=== PATIENT | female | born 1935 | race Caucasian/White ===

== ENCOUNTER 2017-05-12 14:02 | Emergency (ER) | payer MEDICARE, OTHER ==
[~2017-05-12 14:02] MED LIST: ASCO100T4 PO; ASPI-630 PO; ATEN25TA PO; DIPH25CA58 PO; LEVO25TA4 PO; LISI2.5T PO; POTA10CA PO; TRIA1CAP3 PO
[2017-05-12 14:05] VITALS: BP 131/62
--- NOTE | 2017-05-12 14:17 | RAD ---
EXAM: CT head without contrast. HISTORY: Cerebrovascular accident, found down. TECHNIQUE: Computed tomography of the head was performed without intravenous contrast. COMPARISON: 04/07/2004. FINDINGS: There is no intraparenchymal hemorrhage within the right basal ganglia. Additional lobules of hemorrhage extend into the right aspect of the corpus callosum and the right frontal lua matter. Altogether, the process measures approximately 5.0 x 4.2 cm. There is moderate surrounding vasogenic edema. Leftward midline shift measures 6 mm. The right lateral ventricle is effaced. Lua-white differentiation on the left is preserved. Left lateral ventricle is not entrapped. The visualized paranasal sinuses appear clear. There are changes of right cataract surgery. The temporal bones are unremarkable. The calvarium reveals no suspicious lesions. IMPRESSION: 1. 5 x 4 cm right basal ganglia and frontal intraparenchymal hematoma with moderate surrounding vasogenic edema. 6 mm leftward midline shift and effacement of the right lateral ventricle. 2. MRI with/without contrast could exclude an underlying lesion. These findings were called to Dr. Robin by Josef Dailey on 05/12/2017 at 1405. *One or more of the following individualized dose reduction techniques were utilized for this examination: 1. Automated exposure control. 2. Adjustment of the mA and/or kV according to patient size. 3. Use of iterative reconstruction technique.
--- NOTE | 2017-05-12 14:36 | PHYS DOC ---
General Chief Complaint: ALTERED MENTAL STATUS Stated Complaint: AMS Time Seen by MD: 14:13 Source: patient, EMS, old records Exam Limitations: clinical condition Problems: History of Present Illness Initial Comments Patient is an 82-year-old female brought to the ED by EMS with stroke symptoms. EMS reports that the patient was last known well 2 days ago. Earlier today family stop by to take her on errands and she did not come to the door. They called other family from home the patient rents and were able to get into the house and found the patient having left-sided weakness. EMS reports that on arrival they found the patient sitting in a chair with urine soaked through her clothing and through the chair cushions. Today and it appeared that the patient had been there for at least hours. The patient was unresponsive had left-sided facial droop and left-sided weakness and protecting her airway. Her vital signs were stable and she was brought to the emergency department for further evaluation. On arrival I initiated code stroke protocol and the patient was straight to CT. I was called to the radiology department to look at her imaging which revealed a large right-sided bleed. Radiologist called to further define interparenchymal hemorrhage with midline shift, he stated it appeared to be subacute. I asked that jd edwards consultant hospitalist at [facility] be paged. [id number]: I discussed the patient with Dr. Forte jd edwards consultant hospitalist at [facility] who accepts the patient to the ICU. Timing/Duration: unsure Severity: severe Modifying Factors: improves with other Associated Symptoms: weakness Allergies: Coded Allergies: metoclopramide (Verified Allergy, Unknown, Swelling, 03/20/16) tongue and mouth Past Medical History Medical History: other (hypertension, hypothyroidism, hypokalemia, "emotional disorder") Surgical History: noncontributory Social History Smoker: quit greater than 1 year Alcohol: other (unsure) Drugs: none Review of Systems All Other Systems: Reviewed and Negative (per history of present illness accurate review of systems unobtainable.) Physical Exam General Appearance: no apparent distress (lethargic) Ear, Nose, Throat: hearing grossly normal, other (L droop, swallows secretions , opens eyes to verbal stimuli tries to talk speech slurred/garbled) Neck: non-tender, supple Respiratory: other (coarse BS b/l good air movement no resp distress) Cardiovascular: normal peripheral pulses, regular rate, rhythm, other (2+ pitting LE edema) Gastrointestinal: normal bowel sounds, non tender, soft Back: no CVA tenderness, no vertebral tenderness Extremities: non-tender, no calf tenderness, pelvis stable Neurologic/Psychiatric: disoriented x 3, other (L droop, swallows secretions, L side weakness withdraws to pain, some spontaneous motion) Skin: pallor (poor turgor) Orders, Labs, Meds I discussed the patient with family, 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 EKG: Sinus bradycardia 59 bpm with extensive baseline wander artifact, apparent strain pattern anterior leads and T-wave inversion inferiorly. No STEMI changes interpreted by Dr. Ramirez. PATIENT: MADYSON BEARD ACCOUNT: [id number] : 1935 LOCATION: ER AGE: 82 SEX: F EXAM STATUS: PRE ER ORD. PHYSICIAN: WENDY RAMIREZ DO REASON: AMS PROCEDURE: CT CODE STROKE HEAD WO EXAM: CT head without contrast. HISTORY: Cerebrovascular accident, found down. TECHNIQUE: Computed tomography of the head was performed without intravenous contrast. COMPARISON: 04/07/2004. FINDINGS: There is no intraparenchymal hemorrhage within the right basal ganglia. Additional lobules of hemorrhage extend into the right aspect of the corpus callosum and the right frontal lua matter. Altogether, the process measures approximately 5.0 x 4.2 cm. There is moderate surrounding vasogenic edema. Leftward midline shift measures 6 mm. The right lateral ventricle is effaced. Lua-white differentiation on the left is preserved. Left lateral ventricle is not entrapped. The visualized paranasal sinuses appear clear. There are changes of right cataract surgery. The temporal bones are unremarkable. The calvarium reveals no suspicious lesions. IMPRESSION: 1. 5 x 4 cm right basal ganglia and frontal intraparenchymal hematoma with moderate surrounding vasogenic edema. 6 mm leftward midline shift and effacement of the right lateral ventricle. 2. MRI with/without contrast could exclude an underlying lesion. These findings were called to Dr. Ramirez by Josef Dailey on 05/12/2017 at 1405. *One or more of the following individualized dose reduction techniques were utilized for this examination: 1. Automated exposure control. 2. Adjustment of the mA and/or kV according to patient size. 3. Use of iterative reconstruction technique. DICTATED AND SIGNED BY: KANG DAILEY MD DATE: 05/12/17 1408 CC: SHARRI WILLIAM MD; WENDY RAMIREZ DO ~ PATIENT: MADYSON BEARD ACCOUNT: [id number] : 1935 LOCATION: ER AGE: 82 SEX: F EXAM STATUS: REG ER ORD. PHYSICIAN: WENDY RAMIREZ DO REASON: cva PROCEDURE: CHEST AP ONLY Single view of the Chest 05/12/2017 4:36 PM Indication: Cerebrovascular accident Comparison: None Findings: No pneumothorax is identified. There is blunting of left costophrenic angle which may be the result of prominent pericardial fat. Left basilar effusion or atelectasis cannot be excluded. No other focal consolidation is seen. Mild aortic calcification is noted. No acute osseous changes are identified. Impression: Blunting of the left costophrenic angle, most likely technique related. Atelectasis or effusion cannot be completely excluded. Otherwise unremarkable chest radiograph DICTATED AND SIGNED BY: ASYA TOM MD DATE: 05/12/17 145 CC: SHARRI WILLIAM MD; WENDY RAMIREZ DO ~ 1410: No labs back, specimens sent. I discussed pt with Dr Forte who accepts critical pt to ICU at [facility]. Departure Time of Disposition: 14:55 Disposition: 02 XFER SHT-TRM HOSP Diagnosis: acute hemorrhagic right sided CVA Condition: GUARDED Additional Instructions: EMS transfer to [facility] ICU for admission Dr. Forte is accepting. WENDY RAMIREZ DO May 12, 2017 14:36
--- NOTE | 2017-05-12 15:01 | RAD ---
Single view of the Chest 05/12/2017 4:36 PM Indication: Cerebrovascular accident Comparison: None Findings: No pneumothorax is identified. There is blunting of left costophrenic angle which may be the result of prominent pericardial fat. Left basilar effusion or atelectasis cannot be excluded. No other focal consolidation is seen. Mild aortic calcification is noted. No acute osseous changes are identified. Impression: Blunting of the left costophrenic angle, most likely technique related. Atelectasis or effusion cannot be completely excluded. Otherwise unremarkable chest radiograph
[2017-05-12 15:09] LABS: BASO # 0.1 x10^3/uL (0.0-0.2); BASO % 0 % (0-3); EOS % 0 % (0-3); HEMATOCRIT 44.1 % (36.0-47.0); HEMOGLOBIN 14.5 g/dL (12.0-15.5); LYMPH # 0.9 x10^3/uL (1.0-4.8); LYMPH % 6 % (24-48); MEAN CORPUSCULAR HEMOGLOBIN 29 pg (25-35); MEAN CORPUSCULAR HGB CONC 33 g/dL (31-37); MEAN CORPUSCULAR VOLUME 87 fL (79-100); MONO # 1.2 x10^3/uL (0.0-1.1); MONO % 7 % (0-9); NEUT # 14.7 x10^3uL (1.8-7.7); NEUT % 87 % (31-73); PLATELET COUNT 330 x10^3/uL (140-400); RED CELL DISTRIBUTION WIDTH 16.1 % (11.5-14.5); WHITE BLOOD COUNT 16.8 x10^3/uL (4.0-11.0)
[2017-05-12 15:28] LABS: AMPHETAMINE/METHAMPHETAMINE NEG (NEG); BARBITURATES NEG (NEG); BENZODIAZEPINES NEG (NEG); CANNABINOIDS NEG (NEG); COCAINE NEG (NEG); METHADONE NEG (NEG); OPIATES NEG (NEG); PHENCYCLIDINE NEG (NEG)
[2017-05-12 15:46] LABS: ALBUMIN 3.4 g/dL (3.4-5.0); ALBUMIN/GLOBULIN RATIO 0.8 (1.0-1.7); CALCIUM 8.9 mg/dL (8.5-10.1); GFR 53.3; POTASSIUM 3.2 mmol/L (3.5-5.1); TOTAL BILIRUBIN 0.8 mg/dL (0.2-1.0); TOTAL PROTEIN 7.5 g/dL (6.4-8.2)
[2017-05-12 17:42] LABS: SEDIMENTATION RATE 18 (0-25)
[2017-05-12 20:50] LABS: % LYMPHS 6 % (24-48); % MONOS 7 % (0-10); % SEGS 86 % (35-66); PLT ESTIMATE ADEQUATE (ADEQUATE)
[2017-05-12 21:08] LABS: POLYCHROMASIA PRESENT
--- NOTE | 2017-05-12 21:48 | EKG ---
[address] [address] Test Date: 2017-05-12 Test Time: 14:18:59 Pat Name: MADYSON BEARD Department: Room: Gender: F Client Executive: JAK : 1935 Requested By: WENDY RAMIREZ Order Number: [id number] Reading MD: Rusty Esparza MD Measurements Intervals [place] Rate: 59 P: 45 SC: 130 QRS: -9 QRSD: 82 T: -28 QT: 538 QTc: 538 Interpretive Statements SINUS RHYTHM LEFTWARD AXIS NON-SPECIFIC ST/T CHANGES Electronically Signed On 05-15-2017 10:55:37 WOOD [employer]FFER by Rusty Esparza MD
== END 2017-05-12 16:15 | disposition short-term general hospital (02) ==
LOC: ER 14:02
DX: I62.9 Nontraumatic intracranial hemorrhage, unspecified (principal); E03.9 Hypothyroidism, unspecified; I10 Essential (primary) hypertension; Z87.891 Personal history of nicotine dependence; Z88.8 Allergy status to other drugs, medicaments and biological substances
CPT/HCPCS: 36415; 51702; 70450; 71010; 80053; 80307; 82550; 82947; 83605; 84484; 85007; 85025; 85610; 85651; 85730; 93005; 99285-25; G0479